=== PATIENT | female | born 1950 ===

== ENCOUNTER 2022-12-24 11:04 | Day surgery (SDC) | payer MEDICARE, BC ==
[~2022-12-24] VITALS: Ht 172.7 cm; Wt 72.8 kg
[~2022-12-24 11:04] MED LIST: FOLI1 PO; METF500 PO; METTREX2.5 SC; Prinivil10 MG PO
--- NOTE | 2022-12-24 12:46 | NUR ---
Ambulatory in Day Surgery. History, Chart, Medications and Allergies reviewed before start of procedure.Lungs clear T/O to Auscultation. Patient confirms NPO status and agrees with scheduled surgery. Pre-Op teaching done. Pt verbalizes understanding.
--- NOTE | 2022-12-24 15:04 | NUR ---
REPORT GIVEN TO Claudia BARR WHO IS ASSUMING CARE OF PT AT THIS TIME.
--- NOTE | 2022-12-25 04:15 | NUR ---
SHIFT SUMMARY S/P R TKA. AQUACEL DRESSING REMAINS CDI WITH POLAR PACK IN PLACE. UP WITH 1 MINIMAL ASSIST USING FWW + GB TO BRP. 1 ROXICODONE/TORADOL FOR PAIN MANAGEMENT. HAS BEEN INTERMITTENTLY NAUSEATED WITH X1 EMESIS. MINIMALLY TOLERATING PO. IVF INFUSING PER ORDERS. USES CALL LIGHT APPROPRIATELY.
[2022-12-25 05:18] LABS: BASOPHILS PERCENT AUTO 0 % (0-2); EOSINOPHILS PERCENT AUTO 0 % (0-6); Hemoglobin 10.3 g/dL (11.5-16.0); IMMATURE GRAN ABSOLUTE AUTO 0.02 K/mm3 (0.00-0.10); IMMATURE GRAN PERCENT AUTO 0 % (0-1); LYMPHOCYTES ABSOLUTE AUTO 0.36 K/mm3 (0.84-5.20); LYMPHOCYTES PERCENT AUTO 8 % (21-46); MONOCYTES ABSOLUTE AUTO 0.21 K/mm3 (0.16-1.47); MONOCYTES PERCENT AUTO 5 % (4-13); Mean Corpuscular HGB 31.6 pg (26.0-34.0); Mean Corpuscular HGB Conc 33.2 g/dL (31.5-36.5); Mean Corpuscular Volume 95 fL (80-100); Mean Platelet Volume 10.6 fL (9.1-12.4); NEUTROPHILS ABSOLUTE AUTO 4.06 K/mm3 (1.96-9.15); NEUTROPHILS PERCENT AUTO 87 % (41-73); Platelet Count 136 K/mm3 (150-400); RDW Coefficient Variation 13.5 % (11.7-14.2); RDW Standard Deviation 46.5 fL (35.1-46.3); Red Blood Cell Count 3.26 M/mm3 (3.80-5.20); White Blood Cell Count 4.65 K/mm3 (4.00-11.30)
[2022-12-25 05:45] LABS: Bun/Creatinine Ratio 21.3 (12.0-20.0); Calcium, Blood 8.4 mg/dL (8.5-10.1); Creatinine, Blood 0.7 mg/dL (0.40-1.00); Potassium, Blood 4.5 mmol/L (3.5-5.5)
[2022-12-25] MEDS ORDERED: ASPI81CH PO (07:27)
[2022-12-25] MEDS ORDERED: Percocet 5-3251 EACH PO (07:27)
--- NOTE | 2022-12-25 10:26 | NUR ---
Pt. is awake in bed and welcomes my visit. Pt. is pleasant, but displays evidence of an upset stomach. Pt. verbalizes that she is awaiting D/C. Facilitated a short life review and established rapport. Pt. displays evidence of engagement and awareness. Considered matters of nuvia and belief, and prayed for the Pt. Pt. verbalized gratitude fo the spiritual care visit.
--- NOTE | 2022-12-25 11:00 | NUR ---
PT HAS CLEARED THERAPY. PAIN WELL CONTROLLED PER EMAR. EATING, DRINKING, & VOIDING WELL. AMBULATING WELL W/ FWW & GB. DISCUSSED DISCHARGE INSTRUCTIONS & SENT WITH PATIENT. ALSO SENT DRESSINGS, SCRIPTS, & POLAR PACK WITH PT. ESCORTED OUT VIA W/C.
== END 2022-12-25 11:13 | disposition home or self-care (01) ==
LOC: ORSCMMR 11:04 → ORD 12:30 → ORSCMMR 12:30 → SURS 18:36 → ORSCMMR 12-25 11:13
PROVIDERS: Orthopaedic Surgery
PROC: 8E0Y0CZ Robotic Assisted Procedure of Lower Extremity, Open Approach (ICD-10-PCS; principal; 2022-12-24 12:30)
PROC: 0SRC0JA Replacement of Right Knee Joint with Synthetic Substitute, Uncemented, Open Approach (ICD-10-PCS; principal; 2022-12-24 12:30)
DX: M17.11 Unilateral primary osteoarthritis, right knee (principal); I10 Essential (primary) hypertension; E11.9 Type 2 diabetes mellitus without complications; Z79.899 Other long term (current) drug therapy
CPT/HCPCS: 27447; 20985; S2900; 36415; 73560-RT; 80048; 82947; 85025; 97110; 97116; 97162; A9270; C1776; J0171; J0690; J0735; J1100; J1170; J1885; J2250; J2370; J2405; J2704; J2765; J2795; J3010; J3370; J7120